=== PATIENT | male | born 1955 | race Asian ===

== ENCOUNTER 2017-02-25 14:32 | Emergency (ER) | payer BC ==
[2017-02-25 15:17] LABS: BASOPHIL % 0.4 % (0-2); PLATELET COUNT 242 x10^3mcL (130-400); RED CELL DISTRIBUTION WIDTH 12.8 % (11.5-14.5)
[2017-02-25 15:27] LABS: BILIRUBIN TOTAL 0.6 mg/dL (0.20-1.00); CALCIUM 8.4 mg/dL (8.5-10.1); CARBON DIOXIDE 13.8 mmol/L (21-32); CREATININE SERUM 1.7 mg/dL (0.7-1.3); POTASSIUM SERUM 5.4 mmol/L (3.5-5.1); TOTAL PROTEIN, SERUM 7.2 g/dL (6.4-8.2)
[2017-02-25 15:49] LABS: ALBUMIN 3.2 g/dL (3.4-5.0)
[2017-02-25 15:59] LABS: microscopic required? YES; urine erythrocyte 3+ (NEGATIVE)
[2017-02-25 18:24] VITALS: BP 174/80
== END 2017-02-25 18:24 | disposition short-term general hospital (02) ==
LOC: ED 14:32
PROVIDERS: Emergency Medicine
DX: S06.5X0A Traumatic subdural hemorrhage without loss of consciousness, initial encounter (principal); I10 Essential (primary) hypertension; F10.20 Alcohol dependence, uncomplicated; E13.10 Other specified diabetes mellitus with ketoacidosis without coma; Z79.4 Long term (current) use of insulin; Z79.84 Long term (current) use of oral hypoglycemic drugs; W18.39XA Other fall on same level, initial encounter; Y99.8 Other external cause status; Y93.89 Activity, other specified; Y92.89 Other specified places as the place of occurrence of the external cause
CPT/HCPCS: 82962; 83880; G0480; J1815; J7030

== ENCOUNTER 2017-07-14 16:10 | Inpatient (IN) | payer OTHER ==
[~2017-07-14] VITALS: Ht 172.7 cm; Wt 55.5 kg
[2017-07-14 16:37] VITALS: Ht 172.7 cm; Wt 55.5 kg
[2017-07-14 16:53] LABS: BASOPHIL % 0.4 % (0-2)
[2017-07-14 16:55] LABS: PLATELET COUNT 431 x10^3mcL (130-400); RED CELL DISTRIBUTION WIDTH 15.4 % (11.5-14.5)
[2017-07-14 17:00] LABS: CARBON DIOXIDE 21.4 mmol/L (21-32); CHLORIDE SERUM 91 mmol/L (98-107); CREATININE SERUM 0.7 mg/dL (0.7-1.3); GFR1 > 60 mL/min; GLUCOSE SERUM 232 mg/dL (74-106); SODIUM SERUM 131 mmol/L (136-145)
[2017-07-14 17:04] LABS: ALBUMIN 3.7 g/dL (3.4-5.0); ALKALINE PHOSPHATASE 46 U/L (46-116); ALT/SGPT 42 U/L (16-63); AST/SGOT 60 U/L (15-37); BILIRUBIN TOTAL 0.2 mg/dL (0.20-1.00); LIPASE 35 IU/L (73-393)
[2017-07-14 17:06] LABS: TOTAL PROTEIN, SERUM 8.3 g/dL (6.4-8.2)
[2017-07-14 21:52] LABS: T3 TOTAL 0.81 ng/mL
[2017-07-14 22:02] LABS: FREE T4 1.07 ng/dL (0.76-1.46); FREE THYROXINE INDEX 2.4 ug/dL (1.4-4.5); T4(THYROXINE) 6.4 ug/dL (4.7-13.3)
[2017-07-14 22:17] LABS: CHOLESTEROL/HDL RATIO 1.3; MAGNESIUM 2.1 mg/dL (1.8-2.4)
[2017-07-14 22:27] LABS: microscopic required? YES; urine erythrocyte 2+ (NEGATIVE)
[2017-07-14 22:35] LABS: AMPHETAMINE QUAL UR NONE DETECTED (NEG <=1000)
[2017-07-14 22:54] VITALS: BP 149/74
[2017-07-15] MEDS ORDERED: METFORMIN HCL1000 MG PO (03:19)
[2017-07-15] MEDS ORDERED: LISINOPRIL10 MG PO (03:20)
[2017-07-15] MEDS ORDERED: LEXAPRO20 MG PO (03:21)
[2017-07-15] MEDS ORDERED: NEU300 PO (03:22)
[2017-07-15 03:34] VITALS: BP 143/76
[2017-07-15 05:18] LABS: BASOPHIL % 0.2 % (0-2); PLATELET COUNT 386 x10^3mcL (130-400)
[2017-07-15 05:31] LABS: RED CELL DISTRIBUTION WIDTH 15.4 % (11.5-14.5)
[2017-07-15 05:36] LABS: CALCIUM 7.8 mg/dL (8.5-10.1); CARBON DIOXIDE 27.3 mmol/L (21-32); CHLORIDE SERUM 95 mmol/L (98-107); CREATININE SERUM 0.8 mg/dL (0.7-1.3); GFR1 > 60 mL/min; GLUCOSE SERUM 288 mg/dL (74-106); MAGNESIUM 1.8 mg/dL (1.8-2.4); PHOSPHOROUS 3.4 mg/dL (2.5-4.9); POTASSIUM SERUM 4.8 mmol/L (3.5-5.1); SODIUM SERUM 130 mmol/L (136-145)
[2017-07-15 07:30] VITALS: BP 147/68
[2017-07-15 11:53] VITALS: BP 149/79
[2017-07-15 15:50] VITALS: BP 145/80
== END 2017-07-15 17:00 | disposition left against medical advice (07) | DRG 894 ==
LOC: ED 16:10 → IC 20:23 → DU 20:23 → IC 22:40
PROVIDERS: Emergency Medicine; Family Medicine Sports Medicine
DX: F10.129 Alcohol abuse with intoxication, unspecified (principal); G92 Toxic encephalopathy; F33.1 Major depressive disorder, recurrent, moderate; I10 Essential (primary) hypertension; E11.65 Type 2 diabetes mellitus with hyperglycemia; R00.0 Tachycardia, unspecified; F17.210 Nicotine dependence, cigarettes, uncomplicated; R31.9 Hematuria, unspecified; S09.90XA Unspecified injury of head, initial encounter; W18.39XA Other fall on same level, initial encounter; Y93.89 Activity, other specified; Y92.89 Other specified places as the place of occurrence of the external cause; Y99.8 Other external cause status
CPT/HCPCS: 82962; 83880; 84439; G0480; J1815; J2060; J2405; J7030; Q0092

== ENCOUNTER 2017-08-11 11:48 | Inpatient (IN) | payer OTHER ==
[~2017-08-11] VITALS: Ht 170.2 cm; Wt 52.8 kg
[~2017-08-11 11:48] MED LIST: LEXAPRO20 MG PO; LISINOPRIL10 MG PO; METFORMIN HCL1000 MG PO; NEU300 PO
[2017-08-11 11:53] VITALS: Ht 170.2 cm; Wt 52.8 kg
[2017-08-11 12:47] LABS: PLATELET COUNT 225 x10^3mcL (130-400)
[2017-08-11 13:00] LABS: RED CELL DISTRIBUTION WIDTH 14.6 % (11.5-14.5)
[2017-08-11 13:13] LABS: ALKALINE PHOSPHATASE 73 U/L (46-116); ALT/SGPT 48 U/L (16-63); AST/SGOT 68 U/L (15-37); BILIRUBIN TOTAL 0.56 mg/dL (0.20-1.00); CALCIUM 11.5 mg/dL (8.5-10.1); CARBON DIOXIDE 15.8 mmol/L (21-32); CHLORIDE SERUM 90 mmol/L (98-107); CREATININE SERUM 3.4 mg/dL (0.7-1.3); GFR1 20 mL/min; SODIUM SERUM 134 mmol/L (136-145); TOTAL PROTEIN, SERUM 7.6 g/dL (6.4-8.2)
[2017-08-11 13:19] LABS: BAND NEUTROPHIL 25 % (0-10); BASOPHIL 0 % (0-2); METAMYELOCTE 1 % (0-2); MONOCYTE 4 % (0-7); SEGMENTED NEUTROPHILS 58 % (37-75)
[2017-08-11 13:34] LABS: ALBUMIN 3.3 g/dL (3.4-5.0)
[2017-08-11 13:39] LABS: GLUCOSE SERUM 1609 mg/dL (74-106)
[2017-08-11 13:41] LABS: MAGNESIUM 4.3 mg/dL (1.8-2.4)
[2017-08-11 14:01] LABS: POTASSIUM SERUM 6.2 mmol/L (3.5-5.1)
[2017-08-11 15:09] LABS: T3 TOTAL 0.23 ng/mL
[2017-08-11 15:16] LABS: CHOLESTEROL/HDL RATIO 1.7
[2017-08-11 15:24] LABS: FREE T4 0.71 ng/dL (0.76-1.46)
[2017-08-11 15:28] LABS: FREE THYROXINE INDEX 1.3 ug/dL (1.4-4.5); T4(THYROXINE) 3.4 ug/dL (4.7-13.3)
[2017-08-11 15:30] LABS: UA SPECIFIC GRAVITY 1.015 (1.005-1.035); microscopic required? YES; urine erythrocyte 2+ (NEGATIVE)
[2017-08-11 15:45] VITALS: BP 123/62
[2017-08-11 15:57] LABS: AMPHETAMINE QUAL UR NONE DETECTED (NEG <=1000)
[2017-08-11 16:23] VITALS: BP 124/71
[2017-08-11 16:41] LABS: CALCIUM 9.5 mg/dL (8.5-10.1); CARBON DIOXIDE 19.4 mmol/L (21-32); CREATININE SERUM 2.7 mg/dL (0.7-1.3); MAGNESIUM 3.5 mg/dL (1.8-2.4); PHOSPHOROUS 5.9 mg/dL (2.5-4.9); POTASSIUM SERUM 4.1 mmol/L (3.5-5.1)
[2017-08-11] MEDS ORDERED: METFORMIN HCL1000 MG PO (17:43)
[2017-08-11] MEDS ORDERED: LISINOPRIL10 MG PO (17:43)
[2017-08-11] MEDS ORDERED: ESCITALOPRAM20 M1 PO (17:44)
[2017-08-11] MEDS ORDERED: NEU300 PO (17:44)
[2017-08-11 19:24] VITALS: BP 124/65
[2017-08-11 20:23] LABS: CALCIUM 9.7 mg/dL (8.5-10.1); CARBON DIOXIDE 26.8 mmol/L (21-32); CREATININE SERUM 2.4 mg/dL (0.7-1.3); POTASSIUM SERUM 4.5 mmol/L (3.5-5.1)
[2017-08-11 23:15] VITALS: BP 101/57
[2017-08-12 01:06] LABS: CALCIUM 9.2 mg/dL (8.5-10.1); CARBON DIOXIDE 25.8 mmol/L (21-32); CREATININE SERUM 2.4 mg/dL (0.7-1.3); MAGNESIUM 3.3 mg/dL (1.8-2.4); PHOSPHOROUS 4.7 mg/dL (2.5-4.9); POTASSIUM SERUM 4.6 mmol/L (3.5-5.1)
[2017-08-12 03:06] VITALS: BP 90/57
[2017-08-12 04:57] LABS: PLATELET COUNT 166 x10^3mcL (130-400); RED CELL DISTRIBUTION WIDTH 14.5 % (11.5-14.5)
[2017-08-12 05:27] LABS: BAND NEUTROPHIL 31 % (0-10); METAMYELOCTE 30 % (0-2); MONOCYTE 5 % (0-7); MYELOCYTE 5 % (0-2); SEGMENTED NEUTROPHILS 26 % (37-75)
[2017-08-12 05:30] LABS: PLATELET MORPHOLOGY LARGE PLATELET SEEN; rbc morphology (normal/abnorm) ABNORMAL (NORMAL)
[2017-08-12 05:37] LABS: CALCIUM 9.1 mg/dL (8.5-10.1); CARBON DIOXIDE 23.5 mmol/L (21-32); CREATININE SERUM 2.2 mg/dL (0.7-1.3); MAGNESIUM 3.5 mg/dL (1.8-2.4); PHOSPHOROUS 4.4 mg/dL (2.5-4.9); POTASSIUM SERUM 4.4 mmol/L (3.5-5.1)
[2017-08-12 07:31] VITALS: BP 92/60
[2017-08-12 09:01] LABS: CALCIUM 8.9 mg/dL (8.5-10.1); CREATININE SERUM 2.1 mg/dL (0.7-1.3); MAGNESIUM 3.4 mg/dL (1.8-2.4); PHOSPHOROUS 4.1 mg/dL (2.5-4.9); POTASSIUM SERUM 4.4 mmol/L (3.5-5.1)
[2017-08-12 12:05] VITALS: BP 115/66
[2017-08-12] MEDS ORDERED: ZOS3PM IV (15:11)
[2017-08-12 15:27] VITALS: BP 108/55
[2017-08-12 15:57] VITALS: BP 96/47
== END 2017-08-12 18:16 | disposition short-term general hospital (02) | DRG 871 ==
LOC: ED 11:48 → IC 13:53
PROVIDERS: Emergency Medicine; Student in an Organized Health Care Education/Training Program
PROC: 02HV33Z Insertion of Infusion Device into Superior Vena Cava, Percutaneous Approach (ICD-10-PCS; principal; 2017-08-11)
DX: A41.9 Sepsis, unspecified organism (principal); E11.10 Type 2 diabetes mellitus with ketoacidosis without coma; G92 Toxic encephalopathy; N17.0 Acute kidney failure with tubular necrosis; J69.0 Pneumonitis due to inhalation of food and vomit; J96.00 Acute respiratory failure, unspecified whether with hypoxia or hypercapnia; E87.1 Hypo-osmolality and hyponatremia; F10.19 Alcohol abuse with unspecified alcohol-induced disorder; I10 Essential (primary) hypertension; R65.20 Severe sepsis without septic shock; E11.9 Type 2 diabetes mellitus without complications; E87.5 Hyperkalemia; E78.1 Pure hyperglyceridemia; E83.41 Hypermagnesemia; E83.39 Other disorders of phosphorus metabolism; F32.9 Major depressive disorder, single episode, unspecified; Y90.9 Presence of alcohol in blood, level not specified; E78.5 Hyperlipidemia, unspecified; Z91.14 Patient's other noncompliance with medication regimen
CPT/HCPCS: 36556; 36600; 82962; 83880; 84439; G0480; J0696; J1642; J1815; J2270; J2405; J2543; J7030; J7620; Q0092